=== PATIENT | male | born 1970 | race Caucasian/White ===

== ENCOUNTER 2022-11-12 18:26 | Emergency (ER) | payer BC ==
[~2022-11-12] VITALS: Ht 177.8 cm; Wt 102.9 kg
[2022-11-12] MEDS ORDERED: PHENYLEPHRINE 0.5% NASAL SPRAY 15 ML ONE (20:15)
[2022-11-12] MEDS ORDERED: SILVER NITRATE APPLICATOR (1 = QTY 10) TOP ONE ×2 (20:15→20:35)
[2022-11-12] MEDS ORDERED: NASA0.9A NARES (20:58)
[2022-11-12 21:13] VITALS: BP 162/108
[2022-11-12] MEDS ORDERED: hydroCHLOROthiazide 12.5 MG CAPSULE PO ONE (21:20)
[2022-11-12] MEDS ORDERED: HYDR12.55 PO (21:22)
== END 2022-11-12 21:39 | disposition home or self-care (01) ==
LOC: M ED 18:26
DX: R04.0 Epistaxis (principal); R03.0 Elevated blood-pressure reading, without diagnosis of hypertension; Z88.2 Allergy status to sulfonamides